=== PATIENT | female | born 1970 | race Caucasian/White ===

== ENCOUNTER 2018-04-27 12:50 | Emergency (ER) | payer MEDICAID ==
[~2018-04-27] VITALS: Ht 160 cm; Wt 57.7 kg
[2018-04-27 12:52] VITALS: BP 156/109; Ht 160 cm; Wt 57.7 kg
[2018-04-27] MEDS ORDERED: NEURONTIN 300300 MG PO (12:54)
[2018-04-27] MEDS ORDERED: LIORESAL 10 MG10 MG PO (12:54)
[2018-04-27] MEDS ORDERED: PEPCID40 MG PO (12:54)
[2018-04-27] MEDS ORDERED: SEROQUEL25 MG PO (12:54)
[2018-04-27] MEDS ORDERED: ALENDRONATE SOD35 MG PO (12:55)
[2018-04-27] MEDS ORDERED: EFFEXOR37.5 MG PO (12:55)
[2018-04-27] MEDS ORDERED: ULTRAM50 MG PO (14:43)
== END 2018-04-27 15:35 | disposition home or self-care (01) ==
LOC: D.ER 12:50
DX: M54.9 Dorsalgia, unspecified (principal); R10.9 Unspecified abdominal pain; F10.11 Alcohol abuse, in remission